=== PATIENT | male | born 1980 | race Caucasian/White ===

== ENCOUNTER 2019-10-11 16:33 | Emergency (ER) | payer SELFPAY ==
[~2019-10-11] VITALS: Ht 182.9 cm; Wt 120.0 kg
[2019-10-11 16:39] VITALS: BP 145/99
[2019-10-11] MEDS ORDERED: cefTRIAXone IM 1 GM VIAL IM ONE (17:00)
[2019-10-11] MEDS ORDERED: SULF1TAB24 PO (17:06)
--- NOTE | 2019-10-11 17:07 | PHYS DOC ---
General Adult EDM: Chief Complaint: LOWER EXT PAIN HPI: HPI: 39-year-old male presents with concern for cellulitis of the left leg medial inferior knee area. Patient is very anxious and concerned about this. He had a bug bite 2 days ago and over the last 12 hours he has had increasing swelling and redness around the area. It is about 5 cm in diameter. He also has a bug bite on the right calf, but it is localized redness of about 1 cm. He states that there was some drainage from the wound this morning that was thick. It is currently serosanguineous. Patient is very worried because he had a MRSA infection that involve the knee joint 6 months ago. He was hospitalized and got IV antibiotics. He came in sooner this time. Denies fever chills. Review of Systems: Review of Systems: Constitutional: Denies fever or chills Eyes: Denies change in visual acuity HENT: Denies nasal congestion or sore throat Respiratory: Denies cough or shortness of breath Cardiovascular: Denies chest pain or edema GI: Denies abdominal pain, nausea, vomiting, bloody stools or diarrhea : Denies dysuria Musculoskeletal: Denies back pain or joint pain Integument: Insect bites of the bilateral lower extremities. Cellulitis of the left lower leg about 5 cm in diameter. No fluctuant center. Neurologic: Denies headache, focal weakness or sensory changes Endocrine: Denies polyuria or polydipsia Lymphatic: Denies swollen glands Psychiatric: Denies depression or anxiety Heart Score: Risk Factors: Risk Factors: DM, Current or recent (<one month) smoker, HTN, HLP, family history of CAD, obesity. Risk Scores: Score 0 - 3: 2.5% MACE over next 6 weeks - Discharge Home Score 4 - 6: 20.3% MACE over next 6 weeks - Admit for Clinical Observation Score 7 - 10: 72.7% MACE over next 6 weeks - Early Invasive Strategies Physical Exam: PE: Constitutional: Well developed, well nourished, no acute distress, non-toxic appearance. [] HENT: Normocephalic, atraumatic, bilateral external ears normal, oropharynx mois t, no oral exudates, nose normal. [] Eyes: PERRLA, EOMI, conjunctiva normal, no discharge. [] Neck: Normal range of motion, no tenderness, supple, no stridor. [] Cardiovascular:Heart rate regular rhythm, no murmur [] Lungs & Thorax: Bilateral breath sounds clear to auscultation [] Abdomen: Bowel sounds normal, soft, no tenderness, no masses, no pulsatile masses. [] Skin: Warm, dry, no erythema, no rash. [] Back: No tenderness, no CVA tenderness. [] Extremities: No tenderness, no cyanosis, no clubbing, ROM intact, no edema. [] Neurologic: Alert and oriented X 3, normal motor function, normal sensory function, no focal deficits noted. [] Psychologic: Affect normal, judgement normal, mood normal. [] EKG: EKG: [] Radiology/Procedures: Radiology/Procedures: [] Course & Med Decision Making: Course & Med Decision Making Pertinent Labs and Imaging studies reviewed. (See chart for details) The patient does appear to have cellulitis. I do not see purulent drainage, but it does seem like it has expanded rapidly. And concern for staph. I will give the patient a shot of Rocephin 1 g IM. I will then discharge him with 7 days of Bactrim DS. He understands that if this continues to worsen or if he develops of fever, that he will come back to the emergency room and be admitted for IV antibiotics. He is stable for discharge at this time. [] Viviana Disclaimer: Viviana Disclaimer: This electronic medical record was generated, in whole or in part, using a voice recognition dictation system. Departure Departure: Impression: Primary Impression: Cellulitis of left lower extremity Disposition: HOME/RESIDENCE PRIOR TO ADM Condition: STABLE Referrals: PCP,NO (PCP) Patient Instructions: Cellulitis, [id number] Scripts Sulfamethoxazole/Trimethoprim (BACTRIM DS TABLET) 1 Each Tablet 1 TAB PO BID for cellulitis for 7 Days, #14 TAB 0 Refills Prov: JOLENE POLANCO DO 10/11/19 Justification of Admission: Justification of Admission: Justification of Admission Dx: N/A JOLENE POLANCO DO Oct 11, 2019 17:07
== END 2019-10-11 17:28 | disposition home or self-care (01) ==
LOC: ER 16:33
DX: S80.861A Insect bite (nonvenomous), right lower leg, initial encounter (principal); L03.115 Cellulitis of right lower limb; W57.XXXA Bitten or stung by nonvenomous insect and other nonvenomous arthropods, initial encounter; Y93.89 Activity, other specified; Y92.89 Other specified places as the place of occurrence of the external cause; Y99.8 Other external cause status
CPT/HCPCS: 96372; 99283; J0696

== ENCOUNTER 2019-10-22 14:57 | Emergency (ER) | payer SELFPAY ==
[~2019-10-22] VITALS: Ht 182.9 cm; Wt 118.4 kg
[~2019-10-22 14:57] MED LIST: SULF1TAB24 PO
[2019-10-22 15:20] VITALS: BP 122/88
--- NOTE | 2019-10-22 15:40 | PHYS DOC ---
Past History Past Medical History: No Pertinent History Past Surgical History: Other Additional Past Surgical Histo: bilat hand surgery- tendon reconstruction on L, finger reconstruction on R Alcohol Use: None Adult General Chief Complaint Chief Complaint: LOWER EXT PAIN HPI HPI Patient is a 39yo M who presents for RLE cellulitis. He was recently seen in our ED and given RX bactrim. He took this to completion with moderate relief in symptoms but understood return precautions offered, and returned today because x1 site of open drainage became more red >5cm. He has known MRSA. Denies constitutional symptoms such as fever, RUIZ, SHOB, CP, AP. Review of Systems Review of Systems Fourteen body systems has been reviewed. See HPI for pertinent positives and negative responses, other andre all other systems are negative, non pertinent or non contributory Allergies Allergies Allergies Coded Allergies Type Severity Reaction Last Updated Verified Penicillins Allergy Intermediate 10/11/19 Yes latex Allergy Unknown 10/11/19 Yes Uncoded Allergies Type Severity Reaction Last Updated Verified RUBBER Allergy Unknown 10/11/19 Physical Exam Physical Exam Constitutional: Well developed, well nourished, no acute distress, non-toxic appearance. [] HENT: Normocephalic, atraumatic, bilateral external ears normal, oropharynx moist, no oral exudates, nose normal. [] Eyes: PERRLA, EOMI, conjunctiva normal, no discharge. [] Neck: Normal range of motion, no tenderness, supple, no stridor. [] Cardiovascular:Heart rate regular rhythm, no murmur [] Lungs & Thorax: Bilateral breath sounds clear to auscultation [] Abdomen: Bowel sounds normal, soft, no tenderness, no masses, no pulsatile masses. [] Skin: Warm, dry, no erythema, no rash. x1 site of open sore on lateral right thigh that is >5cm erythema without fluctuance underneath, mild purulent exudate able to be expressed[] Back: No tenderness, no CVA tenderness. [] Extremities: No tenderness, no cyanosis, no clubbing, ROM intact, no edema. [] Neurologic: Alert and oriented X 3, normal motor function, normal sensory function, no focal deficits noted. [] Psychologic: Affect normal, judgement normal, mood normal. [] Current Patient Data Vital Signs Vital Signs Date Time Temp Pulse Resp B/P (MAP) Pulse Ox O2 Delivery O2 Flow Rate FiO2 10/22/19 15:20 97.8 84 18 122/88 (99) 95 Room Air EKG EKG [] Radiology/Procedures Radiology/Procedures [] Course & Med Decision Making Course & Med Decision Making Presentation most consistent with simple cellulitis. Given History, Exam, and Workup I have low suspicion for Necrotizing Fasciitis, Abscess, Osteomyelitis, DVT or other emergent problem as a cause for this presentation. Doxycycline given recent Bactrim use Disposition: Discharge. No evidence of serious bacterial illness. Nontoxic appearing, VSS. Strict return precautions discussed with patient with full understanding. Advised patient to follow up promptly with primary care provider within next 48 hours.He did not have one so list of local PCPs given for him to call and establish care Viviana Disclaimer Viviana Disclaimer This electronic medical record was generated, in whole or in part, using a voice recognition dictation system. Departure Departure: Impression: Primary Impression: Cellulitis of right lower extremity without foot Disposition: HOME/RESIDENCE PRIOR TO ADM Condition: STABLE Referrals: PCP,NO (PCP) As instructed at your discharge, please use the attached sheet to find a PCP of your liking, call, and set up outpatient follow-up for the upcoming 1 to 7 days Patient Instructions: Cellulitis, MRSA Overview Scripts Doxycycline Hyclate (DOXYCYCLINE HYCLATE) 100 Mg Tablet 1 TAB PO BID for cellulitis, #14 TAB Prov: ROSHAN LOUIS DO 10/22/19 Justification of Admission: Justification of Admission: Justification of Admission Dx: N/A ROSHAN LOUIS DO Oct 22, 2019 15:40
[2019-10-22] MEDS ORDERED: DOXY100T PO (15:42)
== END 2019-10-22 16:00 | disposition home or self-care (01) ==
LOC: ER 14:57
DX: L03.115 Cellulitis of right lower limb (principal); Z88.0 Allergy status to penicillin; Z91.040 Latex allergy status
CPT/HCPCS: 99283